=== PATIENT | female | born 1990 | race Caucasian/White ===

== ENCOUNTER 2023-08-22 10:49 | Emergency (ER) | payer SELFPAY ==
[~2023-08-22] VITALS: Ht 165.1 cm; Wt 72.0 kg
[2023-08-22 10:56] VITALS: O2SAT 100
[2023-08-22] MEDS ORDERED: IBUP-2030 MT (12:01)
[2023-08-22 13:37] VITALS: TEMP 98.1
[2023-08-22 13:41] VITALS: BP 126/66; PULSE 102; RESP 18
[2023-08-22] MEDS: KETOROLAC 30MG/ML VIAL IM ONE (13:41)
[2023-08-22] MEDS: HYDROCODONE/ACETAMINOPHEN 5/325MG TABLET PO ONE (13:41)
== END 2023-08-22 13:48 | disposition home or self-care (01) ==
LOC: ER 10:49
DX: S99.912A Unspecified injury of left ankle, initial encounter (principal); S93.402A Sprain of unspecified ligament of left ankle, initial encounter; W18.39XA Other fall on same level, initial encounter; Y93.89 Activity, other specified; Y92.89 Other specified places as the place of occurrence of the external cause; Y99.8 Other external cause status
CPT/HCPCS: 81025; 73610; 73630; 29515; 96372; 99284; J1885; Z7610 ×2

== ENCOUNTER 2025-01-06 14:12 | Emergency (ER) | payer MEDICAID ==
[~2025-01-06] VITALS: Ht 167.6 cm; Wt 75.0 kg
[~2025-01-06 14:12] MED LIST: IBUP-2030 MT
[2025-01-06 14:26] VITALS: O2SAT 100
[2025-01-06 15:34] LABS: CLARITY URINE CLOUDY (CLEAR); COLOR URINE YELLOW (YELLOW); GLUCOSE URINE NEGATIVE (NEGATIVE); KETONES URINE NEGATIVE (NEGATIVE); LEUKOCYTE ESTERASE URINE 2+ (NEGATIVE); NITRITE URINE POSITIVE (NEGATIVE); OCCULT BLOOD URINE NEGATIVE (NEGATIVE); PH URINE 6.5 (4.5-8.0); PROTEIN URINE NEGATIVE (NEGATIVE); SPECIFIC GRAVITY URINE 1.018 (1.005-1.030); UROBILINOGEN URINE 0.2 E.U./dL (0.2-1.0)
[2025-01-06 15:53] LABS: BACTERIA URINE 2+; RBC URINE 0-2 /hpf (0-2); SQUAMOUS EPITHELIAL CELL URINE 1+ /lpf (RARE/1+)
[2025-01-06] MEDS ORDERED: PYR200 MT (17:42)
[2025-01-06] MEDS ORDERED: CEPH500C2 MT (17:42)
[2025-01-06] MEDS ORDERED: METR-167 MT (17:42)
[2025-01-06] MEDS: PHENAZOPYRIDINE HCL 100MG TABLET PO ONE (18:06)
[2025-01-06] MEDS: CEPHALEXIN 250MG CAPSULE PO ONE (18:06)
[2025-01-06 18:14] VITALS: BP 121/71; PULSE 77; RESP 18; TEMP 36.8; O2SAT 100
[2025-01-09 04:10] LABS: CHLAMYDIA TRACHOMATIS NAA Negative (Negative); NEISSERIA GONORRHOEAE NAA Negative (Negative)
== END 2025-01-06 18:00 | disposition home or self-care (01) ==
LOC: ER 14:12
DX: R30.0 Dysuria (principal); N30.00 Acute cystitis without hematuria; B96.89 Other specified bacterial agents as the cause of diseases classified elsewhere; N76.0 Acute vaginitis; Z11.3 Encounter for screening for infections with a predominantly sexual mode of transmission; Z79.899 Other long term (current) drug therapy
CPT/HCPCS: 81003; 81025; 87077; 87186; 87210; 87491; 87591; 99284